=== PATIENT | female | born 1980 ===

== ENCOUNTER 2017-12-08 14:33 | Emergency (ER) | payer SELFPAY ==
--- NOTE | 2017-12-08 15:20 | RAD REPORT ---
EXAM DESCRIPTION: CT - Head Brain Wo Cont - 12/08/2017 3:07 pm CLINICAL HISTORY: Seizure. COMPARISON: None. TECHNIQUE: All CT scans are performed using dose optimization technique as appropriate and may inclu de automated exposure control or mA/KV adjustment according to patient size. FINDINGS: No intracranial hemorrhage, hydrocephalus or extra-axial fluid collection.No areas of brai n edema or evidence of midline shift. Mild mucoperiosteal thickening is seen in the right ethmoid air cells and sphenoid sinus. The remaind er the paranasal sinuses and mastoids are clear. The calvarium is intact. IMPRESSION: No acute intracranial abnormality.
[2017-12-08 15:41] LABS: Absolute Lymphocytes (CBC) 0.9 K/uL (0.7-4.9); Absolute Monocytes 0.5 K/uL (0.1-1.3); Absolute Neutrophil 7.5 K/uL (1.8-8.0); Basophils % 0.6 % (0-1.3); Eosinophils % 0.2 % (0-4.4); Hematocrit 41.6 % (36.0-45.0); Lymphocytes % 10.4 % (15.3-44.8); MCH 30.9 pg (27.0-35.0); MCV 91.5 fL (80-100); MPV 9.5 fL (7.6-11.3); RBC Red Blood Cell Count 4.55 M/uL (3.86-4.86)
[2017-12-08 15:58] LABS: Bicarbonate 23 mEq/L (21-31); Glucose Level 122 mg/dL (65-120); Lipase 18 U/L (22-51); Potassium 4.3 mEq/L (3.6-5.0); Sodium Level 136 mEq/L (135-145)
[2017-12-08 16:04] LABS: ALT/SGPT 30 IU/L (10-60); AST/SGOT 33 IU/L (10-42); Albumin 4.2 g/dL (3.2-5.5); Alkaline Phosphatase 74 IU/L (42-121); Amylase Level 53 U/L (28-100); BUN Blood Urea Nitrogen 9 mg/dL (6-20); Bilirubin Direct < 0.1 mg/dL (0-0.2); Bilirubin Total 0.2 mg/dL (0.3-1.2); Magnesium 2.2 mg/dL (1.8-2.5); Protein, Total 8.1 g/dL (6.0-8.3)
[2017-12-08] MEDS ORDERED: NA CHLORIDE 0.9% 1,000 ML ONE (16:05)
[2017-12-08] MEDS ORDERED: levETIRAcetam 1,000 MG in NA CHLORIDE 0.9% 100 ML IV ONE (17:30)
--- NOTE | 2017-12-08 18:47 | ER ---
Nurse's Notes [facility] Name: Carol Vazquez Age: 37 yrs Sex: Female : 1980 Arrival Date: 12/08/2017 Time: 14:48 Bed 19 Private MD: Diagnosis: Epilepsy and recurrent seizures Presentation: 12/08 14:54 Presenting complaint: EMS states: She has a hx of seizures, has not been taking her jl7 meds, had 2 seizures today and has been postictal since 1345 today. 14:55 Transition of care: patient was not received from another setting of care. Onset of jl7 symptoms was December 08, 2017. Initial Sepsis Screen: Does the patient meet any 2 criteria? No. Patient's initial sepsis screen is negative. Does the patient have a suspected source of infection? No. Patient's initial sepsis screen is negative. Care prior to arrival: IV initiated. 20 GA, in the left antecubital area. 14:55 Method Of Arrival: EMS: [facility] 14:55 Acuity: ROGERIO 2 jl7 Triage Assessment: 14:55 General: Appears uncomfortable, Behavior is cooperative. Pain: Denies pain. EENT: No jl7 signs and/or symptoms were reported regarding the EENT system. Neuro: Level of Consciousness is obeys commands, Oriented to person, place, time. Cardiovascular: Heart tones S1 S2 present Patient's skin is warm and dry. Respiratory: Airway is patent Respiratory effort is even, unlabored, Respiratory pattern is regular, symmetrical. GI: No signs and/or symptoms were reported involving the gastrointestinal system. : No signs and/or symptoms were reported regarding the genitourinary system. Derm: Skin is pink, warm \T\ dry. Musculoskeletal: No signs and/or symptoms reported regarding the musculoskeletal system. 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 - Social history:: Smoking status: Patient uses Patient/guardian denies using alcohol, street drugs, IV drugs, The patient lives with spouse. - Family history:: not pertinent. Screenin:25 Abuse screen: Denies threats or abuse. Denies injuries from another. Nutritional jl7 screening: No deficits noted. Tuberculosis screening: No symptoms or risk factors identified. Fall Risk No fall in past 12 months (0 pts). Secondary diagnosis (15 points) seizures, IV access (20 points). Total Potter Fall Scale indicates Low Risk Score (25-44 pts). Assessment: 14:55 General: See triage assessment. jl7 16:00 Reassessment: Patient and/or family updated on plan of care and expected duration. Pain jl7 level reassessed. Pain: Denies pain. Neuro: Level of Consciousness is awake, obeys commands, Oriented to person, place, time, situation. 17:00 Reassessment: Patient and/or family updated on plan of care and expected duration. Pain jl7 level reassessed. Neuro: Level of Consciousness is obeys commands, drowsy but responds when verbally stimulated.. 18:00 Reassessment: No changes from previously documented assessment. Patient and/or family jl7 updated on plan of care and expected duration. Pain level reassessed. 18:50 Reassessment: Pt's boyfriend at bedside, Dr. Corrigan at bedside. jl7 Vital Signs: 14:51 BP 110 / 72; Pulse 80; Resp 16 S; Temp 98.8(A); Pulse Ox 100% on R/A; jl7 16:16 BP 112 / 69; Pulse 82; Resp 14; Pulse Ox 100% on R/A; mh5 17:00 BP 114 / 74; Pulse 86; Resp 16; Pulse Ox 100% ; jl7 17:31 BP 111 / 71; Pulse 78; Resp 15; Pulse Ox 99% ; mh5 18:00 BP 109 / 65; Pulse 80; Resp 16; Pulse Ox 99% ; jl7 18:30 BP 112 / 69; Pulse 90; Resp 16; Pulse Ox 99% ; jl7 Gosia Coma Score: 14:55 Eye Response: to voice(3). Verbal Response: oriented(5). Motor Response: obeys jl7 commands(6). Total: 14. ED Course: 14:48 Patient arrived in ED. jl7 14:50 Fermin Corrigan MD is Attending Physician. ma2 14:51 Arm band placed on right wrist. jl7 15:00 Maintain EMS IV. Dressing intact. Site clean \T\ dry. Gauge \T\ site: 20 left AC. jl 7 15:07 CT Head Brain wo Cont In Process Unspecified. EDMS 15:16 Santa Wick RN is Primary Nurse. jl7 15:28 EKG done, by measurement and sensing technician. reviewed by Fermin Corrigan MD. dt2 16:25 Patient has correct armband on for positive identification. Bed in low position. Call jl7 light in reach. Side rails up X 1. Seizure precautions initiated. Pulse ox on. NIBP on. Warm blanket given. 16:30 Triage completed. jl7 18:46 Destin Jay MD is Referral Physician. ma2 19:00 No provider procedures requiring assistance completed. IV discontinued, intact, jl7 bleeding controlled, No redness/swelling at site. Pressure dressing applied. Administered Medications: 16:19 Drug: NS 0.9% 1000 ml Route: IV; Rate: 1 bolus; Site: left antecubital; jl7 18:45 Follow up: IV Status: IV converted to saline lock jl7 17:45 Drug: Keppra 1000 mg Route: IV; Rate: calculated rate; Site: left antecubital; jl7 18:00 Follow up: Response: No adverse reaction; IV Status: Completed infusion jl7 Outcome: 18:46 Discharge ordered by . ma2 19:00 Discharged to home ambulatory, with significant other. jl7 19:00 Condition: stable 19:00 Discharge instructions given to patient, significant other, Instructed on discharge instructions, follow up and referral plans. medication usage, Demonstrated understanding of instructions, follow-up care, medications, Prescriptions given X 1. 19:02 Patient left the ED. jl7 Signatures: Dispatcher [employer] EDNC Milly Thomas 5 Santa Wick, BEVERLY RN jl7 Fermin Corrigan MD MD ma2 Annita Barajas dt2 Corrections: (The following items were deleted from the chart) 16:26 16:25 Fall Risk IV access (20 points). Total Potter Fall Scale indicates No Risk (0-24 jl7 pts). jl7
--- NOTE | 2017-12-08 18:47 | EDPHYS ---
Physician Documentation [facility] Name: Carol Vazquez Age: 37 yrs Sex: Female : 1980 Arrival Date: 12/08/2017 Time: 14:48 Bed 19 Private MD: ED Physician Ferimn Corrigan HPI: 12/08 14:53 This 37 yrs old Female presents to ER via Unassigned with complaints of seizure. ma2 14:53 The patient presents with a history of multiple seizures, a total of 2. Character of ma2 seizure(s): Motor activity: generalized. Context: the seizure(s) was witnessed, by a significant other. Seizure Hx: Original onset: longstanding, 5 year(s) ago. Associated injury: The patient did not suffer any apparent associated injury. bib EMS, she did not take her keppra 1000 mg and had a seizure earlier today then her significant other gave her keppra 1 gm then she had another seizure and so he called ems, no intervention done by EMS, her seizures are unchanged, generalized tonic clonic, she is unable to give hx as she is post ectal, last seizure was 5 months ago, VS wnl, BS wnl . 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 - Social history:: Smoking status: Patient uses Patient/guardian denies using alcohol, street drugs, IV drugs, The patient lives with spouse. - Family history:: not pertinent. ROS: 14:53 Neuro: Positive for seizure activity. ma2 14:53 All other systems are negative. Exam: 14:53 Head/Face: Normocephalic, atraumatic. Eyes: Pupils equal round and reactive to light, ma2 extra-ocular motions intact. Lids and lashes normal. Conjunctiva and sclera are non-icteric and not injected. Cornea within normal limits. Periorbital areas with no swelling, redness, or edema. Chest/axilla: Normal chest wall appearance and motion. Nontender with no deformity. No lesions are appreciated. Cardiovascular: Regular rate and rhythm with a normal S1 and S2. No gallops, murmurs, or rubs. Normal PMI, no JVD. No pulse deficits. Respiratory: Lungs have equal breath sounds bilaterally, clear to auscultation and percussion. No rales, rhonchi or wheezes noted. No increased work of breathing, no retractions or nasal flaring. Abdomen/GI: Soft, non-tender, with normal bowel sounds. No distension or tympany. No guarding or rebound. No evidence of tenderness throughout. 14:53 MS/ Extremity: Pulses equal, no cyanosis. Neurovascular intact. Full, normal range of motion. Neuro: Awake and alert, GCS 15, oriented to person, place, time, and situation. Cranial nerves II-XII grossly intact. Motor strength 5/5 in all extremities. Sensory grossly intact. Cerebellar exam normal. Normal gait. 14:53 Constitutional: The patient appears post ectal arousable to verbal stimulus 14:53 Neuro: Exam negative for Vital Signs: 14:51 BP 110 / 72; Pulse 80; Resp 16 S; Temp 98.8(A); Pulse Ox 100% on R/A; jl7 16:16 BP 112 / 69; Pulse 82; Resp 14; Pulse Ox 100% on R/A; mh5 17:00 BP 114 / 74; Pulse 86; Resp 16; Pulse Ox 100% ; jl7 17:31 BP 111 / 71; Pulse 78; Resp 15; Pulse Ox 99% ; mh5 18:00 BP 109 / 65; Pulse 80; Resp 16; Pulse Ox 99% ; jl7 18:30 BP 112 / 69; Pulse 90; Resp 16; Pulse Ox 99% ; jl7 Gosia Coma Score: 14:55 Eye Response: to voice(3). Verbal Response: oriented(5). Motor Response: obeys jl7 commands(6). Total: 14. MDM: 14:50 Patient medically screened. ma2 14:53 Differential diagnosis: cerebral vascular accident, drug overdose, seizure, break ma2 through seizure . 18:44 Data reviewed: vital signs, nurses notes, EMS record, lab test result(s). Counseling: I ma2 had a detailed discussion with the patient and/or guardian regarding: the historical points, exam findings, and any diagnostic results supporting the discharge/admit diagnosis, the presence of at least one elevated blood pressure reading (>120/80) during this emergency department visit, the need for outpatient follow up. ED course: given IV keppra, no seizure in ER workup unremarkable, likely breakthrough seizure, will f/u with neuro in 2 days . 12/08 14:51 Order name: Amylase, Serum; Complete Time: 18:01 ma2 12/08 14:51 Order name: Basic Metabolic Panel; Complete Time: 18:01 ma2 12/08 14:51 Order name: CBC with Diff; Complete Time: 15:46 2 12/08 14:51 Order name: Hepatic Function; Complete Time: 18:01 ma2 12/08 14:51 Order name: CT Head Brain wo Cont; Complete Time: 15:46 ma2 12/08 14:51 Order name: Lipase; Complete Time: 18:12/08 14:51 Order name: Magnesium; Complete Time: 18:01 ma2 12/08 14:51 Order name: EKG; Complete Time: 14:52 ma2 12/08 14:51 Order name: Cardiac monitoring; Complete Time: 16:20 2 12/08 14:51 Order name: EKG - Nurse/Tech; Complete Time: 16:20 2 12/08 14:51 Order name: IV Saline Lock; Complete Time: 16:19 2 12/08 14:51 Order name: Labs collected and sent; Complete Time: 16:19 12/08 14:51 Order name: NPO; Complete Time: 16:19 ma2 12/08 14:51 Order name: O2 Per Protocol; Complete Time: 16:19 2 12/08 14:51 Order name: O2 Sat Monitoring; Complete Time: 16:19 ma2 Administered Medications: 16:19 Drug: NS 0.9% 1000 ml Route: IV; Rate: 1 bolus; Site: left antecubital; jl7 18:45 Follow up: IV Status: IV converted to saline lock jl7 17:45 Drug: Keppra 1000 mg Route: IV; Rate: calculated rate; Site: left antecubital; jl7 18:00 Follow up: Response: No adverse reaction; IV Status: Completed infusion jl7 Disposition: 12/08/17 18:46 Discharged to Home. Impression: Epilepsy and recurrent seizures. - Condition is Stable. - Discharge Instructions: Seizure, Adult, [id number]. - Prescriptions for Keppra 500 mg Oral Tablet - take 1 tablet by ORAL route every 12 hours; 20 tablet. - Medication Reconciliation Form, Thank You Letter, Antibiotic Education, Prescription Opioid Use form. - Follow up: Private Physician; When: Tomorrow; Reason: Continuance of care. Follow up: Destin Jay MD; When: Tomorrow; Reason: Continuance of care. - Problem is new. - Symptoms have improved. Signatures: Dispatcher [employer] Santa Tolentino RN RN jl7 JesusFermin gonzales MD MD ma2
--- NOTE | 2017-12-08 22:36 | EKG ---
Test Date: 2017-12-08 Test Time: 15:13:57 Visual Merchandising Director: CHARLETTE MEASUREMENT RESULTS: Intervals: Rate: 83 NV: 160 QRSD: 90 QT: 366 QTc: 430 [place]: P: 71 NV: 160 QRS: 66 T: 56 INTERPRETIVE STATEMENTS: Normal sinus rhythm Normal ECG No previous ECG available for comparison Electronically Signed On 12-08-17 22:35:58 CDT by Fernando Sy
== END 2017-12-08 19:02 | disposition home or self-care (01) ==
LOC: ER 14:33
DX: G40.802 Other epilepsy, not intractable, without status epilepticus (principal)
CPT/HCPCS: 36415; 70450; 80048; 80076; 82150; 83690; 83735; 85025; 93005; 96361; 96374; 99284; J1953; J7030

== ENCOUNTER 2018-02-18 13:58 | Emergency (ER) | payer SELFPAY ==
[2018-02-18] MEDS ORDERED: levETIRAcetam 500 MG TAB ONE (15:20)
[2018-02-18 15:52] LABS: Absolute Lymphocytes (CBC) 2.9 K/uL (0.7-4.9); Absolute Monocytes 0.8 K/uL (0.1-1.3); Absolute Neutrophil 2.3 K/uL (1.8-8.0); Basophils % 0.7 % (0-1.3); Hematocrit 39.3 % (36.0-45.0); Lymphocytes % 47.5 % (15.3-44.8); MCH 31.6 pg (27.0-35.0); MPV 9.6 fL (7.6-11.3); Monocytes % 12.6 % (3.3-12.3); RBC Red Blood Cell Count 4.23 M/uL (3.86-4.86)
[2018-02-18 15:57] LABS: Protime INR 1.1
[2018-02-18] MEDS ORDERED: RISPERIDONE 1 MG TABLET PO ONE (16:00)
[2018-02-18 16:50] LABS: ALT/SGPT 28 U/L (12-78); AST/SGOT 30 U/L (15-37); Albumin 3.8 g/dL (3.4-5.0); Alkaline Phosphatase 80 U/L (45-117); BUN Blood Urea Nitrogen 8 mg/dL (7-18); Bicarbonate 28 mmol/L (21-32); Bilirubin Direct < 0.1 mg/dL (0-0.2); Bilirubin Total 0.5 mg/dL (0.2-1.0); Glucose Level 88 mg/dL (74-106); Potassium 3.5 mmol/L (3.5-5.1); Sodium Level 142 mmol/L (136-145)
[2018-02-18 16:51] LABS: Alcohol Serum/Plasma < 3 mg/dL (0-3)
[2018-02-18 17:44] LABS: Barbiturates NEGATIVE (NEGATIVE); Benzodiazepines NEGATIVE (NEGATIVE); Cocaine NEGATIVE (NEGATIVE); METHAMPHETAM NEGATIVE (NEGATIVE); Methadone NEGATIVE (NEGATIVE); Opiates NEGATIVE (NEGATIVE); Phencyclidine NEGATIVE (NEGATIVE); THC Cannibis NEGATIVE (NEGATIVE)
[2018-02-18 18:33] LABS: Urine Blood TRACE (NEG); Urine Glucose NEGATIVE (NEG); Urine Protein NEGATIVE (NEG)
--- NOTE | 2018-02-18 18:48 | RAD REPORT ---
EXAM DESCRIPTION: CT - Stone Protocol - 02/18/2018 6:41 pm CLINICAL HISTORY: Flank pain. ABD PAIN COMPARISON: No comparisons TECHNIQUE: Axial images were obtained without oral or IV contrast. Lack of contrast limits solid org an and vascular assessment. The [id number] spans the entirety of the system partially obscuring uppermost abdomen and lung bases. Coronal reformatted images were obtained and reviewed. All CT scans are performed using dose optimization technique as appropriate and may include automated exposure control or mA/KV adjustment according to patient size. FINDINGS: The lower lung ascencio are clear. Imaged portions of the liver and spleen show no suspicious findings on non-contrast imaging. The panc reas and adrenal glands are normal. No pathologic lymphadenopathy in the abdomen or pelvis. No urinary tract stones or obstructive uropathy. No bowel obstruction, free air, free fluid or abscess. Normal appendix noted. No significant bony abnormality. IMPRESSION: No urinary tract stones or obstructive uropathy.
[2018-02-18] MEDS ORDERED: SILVER SULFADIAZINE 1% 25 GM TOP ONE (20:07)
[2018-02-18] MEDS ORDERED: DIAZEPAM 2 MG TABLET ONE (21:59)
[2018-02-19] MEDS ORDERED: IBUPROFEN 400 MG TAB ONE (15:40)
[2018-02-19] MEDS ORDERED: IBUPROFEN 200 MG TAB PO ONE (15:41)
--- NOTE | 2018-02-19 17:03 | EDPHYS ---
Physician Documentation [facility] Name: Carol Vazquez Age: 37 yrs Sex: Female : 1980 Arrival Date: 02/18/2018 Time: 14:02 Bed 18 Private MD: None, None ED Physician Saad Castle HPI: 02/18 15:24 This 37 yrs old Unknown Female presents to ER via Ambulatory with complaints of Psych snw Problem, Pelvic Pain, Abdominal Pain. 15:24 The patient presents to the emergency department with suicide ideation, and the patient snw has a plan, asking for gun. Onset: The symptoms/episode began/occurred acutely. Past psychiatric history: Prior diagnosis: schizophrenia, Psychiatric medications include: risperdone, keppra. Associated signs and symptoms: Pertinent positives; abdominal pain. Severity of symptoms: At their worst the symptoms were moderate severe. The patient has experienced similar episodes in the past. as noted. s.o. unaware if pt is currently taking medications as directed. 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 - Social history:: Smoking status: Patient uses tobacco products, smokes one-half pack cigarettes per day. - Ebola Screening: : Patient denies travel to an Ebola-affected area in the 21 days before illness onset. ROS: 15:13 Eyes: Negative for injury, pain, redness, and discharge, ENT: Negative for injury, snw pain, and discharge, Neck: Negative for injury, pain, and swelling, Cardiovascular: Negative for chest pain, palpitations, and edema, Respiratory: Negative for shortness of breath, cough, wheezing, and pleuritic chest pain. 15:13 Back: Negative for injury and pain, : Negative for injury, bleeding, discharge, and swelling, MS/Extremity: Negative for injury and deformity, Skin: Negative for injury, rash, and discoloration, Neuro: Negative for headache, weakness, numbness, tingling, and seizure. 15:13 Constitutional: Positive for s.o. reports pt having hallucinations, screaming out nonsense, followed by staring off in space. Hx of seizures, last seizures 3 days ago x 3. Seen at [facility] at that time. 15:13 Abdomen/GI: Positive for abdominal pain. 15:13 Psych: Positive for suicidal ideation, per s.o. pt is having some sort of hallucinations, pt denies. Exam: 15:02 Head/Face: Normocephalic, atraumatic. Eyes: Pupils equal round and reactive to light, snw extra-ocular motions intact. Lids and lashes normal. Conjunctiva and sclera are non-icteric and not injected. Cornea within normal limits. Periorbital areas with no swelling, redness, or edema. ENT: Nares patent. No nasal discharge, no septal abnormalities noted. Tympanic membranes are normal and external auditory canals are clear. Oropharynx with no redness, swelling, or masses, exudates, or evidence of obstruction, uvula midline. Mucous membranes moist. Neck: Trachea midline, no thyromegaly or masses palpated, and no cervical lymphadenopathy. Supple, full range of motion without nuchal rigidity, or vertebral point tenderness. No Meningismus. Chest/axilla: Normal chest wall appearance and motion. Nontender with no deformity. No lesions are appreciated. Cardiovascular: Regular rate and rhythm with a normal S1 and S2. No gallops, murmurs, or rubs. Normal PMI, no JVD. No pulse deficits. Respiratory: Lungs have equal breath sounds bilaterally, clear to auscultation and percussion. No rales, rhonchi or wheezes noted. No increased work of breathing, no retractions or nasal flaring. Back: No spinal tenderness. No costovertebral tenderness. Full range of motion. Skin: Warm, dry with normal turgor. Normal color with no rashes, no lesions, and no evidence of cellulitis. MS/ Extremity: Pulses equal, no cyanosis. Neurovascular intact. Full, normal range of motion. Neuro: Awake and alert, GCS 15, oriented to person, place, time, and situation. Cranial nerves II-XII grossly intact. Motor strength 5/5 in all extremities. Sensory grossly intact. Cerebellar exam normal. Normal gait. 15:02 Constitutional: The patient appears awake, anxious, not communicating much, most of history from significant other 15:02 Abdomen/GI: Inspection: abdomen appears normal, Bowel sounds: normal, Palpation: moderate abdominal tenderness, in the suprapubic area, rebound tenderness, is not appreciated. 15:03 Special observations: pt does not acknowledge history of hallucinations that s.o. snw reports, only reports abd pain. Vital Signs: 14:44 BP 117 / 84; Pulse 86; Resp 18; Temp 98.1(TE); Pulse Ox 100% on R/A; Weight 63.5 kg (R);aj1 19:18 BP 112 / 78; Pulse 82; Resp 17; Temp 98; Pulse Ox 99% ; ks6 02/19 00:01 BP 118 / 79; Pulse 66; Resp 17; Temp 97; Pulse Ox 98% ; ks6 07:42 BP 118 / 71; Pulse 69; Resp 16; Temp 96.2(O); Pulse Ox 100% on R/A; Pain 0/10; em 11:30 BP 105 / 66; Pulse 71; Resp 16; Temp 98.1; Pulse Ox 100% ; mp1 12:00 Temp 98.1(O); em 15:34 BP 111 / 64; Pulse 80; Resp 16; Temp 98.3; Pulse Ox 99% ; mp1 MDM: 07 14:58 Patient medically screened. snw 16:22 ED course: Pt's [place] [phone]. snw 17:54 Data reviewed: vital signs, nurses notes. Data interpreted: Pulse oximetry: on room air snw is 100 %. Interpretation: normal. Counseling: I had a detailed discussion with the patient and/or guardian regarding: the historical points, exam findings, and any diagnostic results supporting the discharge/admit diagnosis, the presence of at least one elevated blood pressure reading (>120/80) during this emergency department visit, lab results. Other consultation: [facility] Emergency screener for eval. 21:49 ED course: pt becoming agitated, does not wish to stay. Haleigh called and pt calm, snw awaiting psych placement.. 02/19 02:01 ED course: sleeping in no acute distress. Haleigh called to inquire about patient and snw current status relayed.. 02:14 Transition of care: After a detail discussion of the patient's case, care is snw transferred to Jason Knapp MD. 08:27 ED course: The patient continues to be stable and without any worsening. She continues kdr to have auditory hallucinations. Her boyfriend is here but not comfortable with taking her home as yet. He will return later today to check on her. 02/18 14:57 Order name: Acetaminophen snw 02/18 14:57 Order name: Basic Metabolic Panel sn 02/18 14:57 Order name: CBC with Diff; Complete Time: 16:43 snw 02/18 14:57 Order name: ETOH Level; Complete Time: 17:28 snw 02/18 14:57 Order name: Hepatic Function; Complete Time: 17:28 snw 02/18 14:57 Order name: PT-INR; Complete Time: 16:43 snw 02/18 14:57 Order name: Ptt, Activated; Complete Time: 16:43 snw 02/18 14:57 Order name: Salicylate; Complete Time: 16:43 w 02/18 14:57 Order name: Urine Drug Screen; Complete Time: 17:52 snw 02/18 14:57 Order name: Acetaminophen Level; Complete Time: 17:28 EDMS 02/18 14:57 Order name: Basic Metabolic Panel; Complete Time: 17:28 EDMS 02/18 17:27 Order name: Urine Dipstick--Ancillary (enter results); Complete Time: 18:35 ag 02/18 17:27 Order name: Urine --Ancillary (enter results); Complete Time: 18:35 ag 02/18 18:21 Order name: CT Stone Protocol; Complete Time: 18:49 snw 02/18 14:57 Order name: Urine Test (obtain specimen); Complete Time: 19:35 snw 02/18 14:57 Order name: EKG; Complete Time: 14:57 w 02/18 14:57 Order name: EKG - Nurse/Tech; Complete Time: 19:35 w 02/18 14:57 Order name: IV Saline Lock; Complete Time: 15:43 snw 02/18 14:57 Order name: Labs collected and sent; Complete Time: 15:43 w 02/18 14:57 Order name: Urine Dipstick-Ancillary (obtain specimen); Complete Time: 19:59 snw 07/12 16:56 Order name: Diet Regular; Complete Time: 16:56 sg 02/18 17:29 Order name: Diet Regular; Complete Time: 17:29 snw 02/18 21:49 Order name: Misc. Order: snack; Complete Time: 21:49 snw 02/19 07:28 Order name: Diet Regular; Complete Time: 07:28 dh3 02/19 10:55 Order name: Diet Regular; Complete Time: 10:55 em 02/19 16:00 Order name: Diet Regular; Complete Time: 16:00 em Administered Medications: 02/18 15:30 Drug: Keppra 500 mg Route: PO; sg 02/19 07:30 Follow up: Response: No adverse reaction em 02/18 15:30 Drug: RisperDAL 2 mg Route: PO; sg 02/19 13:46 Follow up: Response: No adverse reaction em 02/18 22:08 Drug: Valium 2 mg Route: PO; bs1 02/19 07:30 Follow up: Response: No adverse reaction em Disposition: 17:01 I agree with the assessment and plan of care. kdr Disposition: 02/19/18 17:02 Discharged to Home. Impression: Epilepsy and recurrent seizures, Hallucinations, unspecified, Schizophrenia, unspecified. - Condition is Stable. - Discharge Instructions: Schizophrenia, Helping Someone Who is Suicidal, Seizure, Adult, [id number]. - Medication Reconciliation Form, Thank You Letter form. - Follow up: Private Physician; When: 2 - 3 days; Reason: If symptoms return, Further diagnostic work-up, Recheck today's complaints, Continuance of care, Re-evaluation by your physician. - Problem is an acute exacerbation. - Symptoms have improved. Signatures: Dispatcher [employer] Naima Mo RN RN aj1 Anuj Hunter RN RN Saad Rendon MD MD kdr Therrien, Shelly, MASH PREPARATORY OPERATOR-C MASH PREPARATORY OPERATOR-Fabio Jones, SPINNING FRAME TENDER SPINNING FRAME TENDER em Hedy Cooper, RN RN bs1 Corrections: (The following items were deleted from the chart) 17:51 17:02 02/19/2018 17:02 Discharged to Home. Impression: Epilepsy and recurrent seizures; em Hallucinations, unspecified; Schizophrenia, unspecified. Condition is Stable. Forms are Medication Reconciliation Form, Thank You Letter, Antibiotic Education, Prescription Opioid Use. Follow up: Private Physician; When: 2 - 3 days; Reason: If symptoms return, Further diagnostic work-up, Recheck today's complaints, Continuance of care, Re-evaluation by your physician. Problem is an acute exacerbation. Symptoms have improved. kdr
--- NOTE | 2018-02-19 17:03 | ER ---
Nurse's Notes [facility] Name: Carol Vazquez Age: 37 yrs Sex: Female : 1980 Arrival Date: 02/18/2018 Time: 14:02 Bed 18 Private MD: None, None Diagnosis: Epilepsy and recurrent seizures;Hallucinations, unspecified;Schizophrenia, unspecified Presentation: 02/18 14:38 Presenting complaint: Significant other states: She has been saying that her stomach aj1 hurts and she's been yelling and having hallucinations. Patient states that she wants to hurt herself. Denies any plan. Significant other states that she has been asking him if he has a gun. Transition of care: patient was not received from another setting of care. Onset of symptoms was February 15, 2018. Risk Assessment: Do you want to hurt yourself or someone else? Patient reports desire/thoughts of hurting themselves or someone else. Provider notified. Initial Sepsis Screen: Does the patient meet any 2 criteria? No. Patient's initial sepsis screen is negative. Does the patient have a suspected source of infection? No. Patient's initial sepsis screen is negative. Care prior to arrival: None. 14:38 Method Of Arrival: Ambulatory aj1 14:38 Acuity: ROGERIO 2 aj1 Triage Assessment: 14:44 General: Appears in no apparent distress. comfortable, Behavior is calm, cooperative, aj1 appropriate for age. Pain: Denies pain. Neuro: Level of Consciousness is awake, alert, obeys commands. Respiratory: Airway is patent Respiratory effort is even, unlabored, Respiratory pattern is regular, symmetrical. 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 - Social history:: Smoking status: Patient uses tobacco products, smokes one-half pack cigarettes per day. - Ebola Screening: : Patient denies travel to an Ebola-affected area in the 21 days before illness onset. Screenin:18 Abuse screen: Denies threats or abuse. Denies injuries from another. Nutritional bs1 screening: No deficits noted. Tuberculosis screening: No symptoms or risk factors identified. Fall Risk None identified. Assessment: 15:20 General: Appears in no apparent distress. comfortable, well groomed, well developed, sg well nourished, Behavior is calm, cooperative, appropriate for age. Pain: Complains of pain in abdomen and pelvis Quality of pain is described as aching, throbbing. Neuro: Level of Consciousness is awake, alert, obeys commands, Oriented to person, place, Speech is normal, Facial symmetry appears normal, pt reports audible hallucinations, "hearing voices.". Cardiovascular: Heart tones S1 S2 present Capillary refill is brisk in bilateral fingers Patient's skin is warm and dry. Respiratory: Airway is patent Respiratory effort is even, unlabored, Respiratory pattern is regular, symmetrical, Breath sounds are clear. GI: No signs and/or symptoms were reported involving the gastrointestinal system. : No deficits noted. EENT: No deficits noted. Derm: Skin is pink, warm \\T\\ dry. Musculoskeletal: No signs and/or symptoms reported regarding the musculoskeletal system. 16:30 Reassessment: pt dcd IV, intact bleeding controlled, a pressure dressing was applied, sg bleeding controlled. 17:04 Reassessment: Patient appears in no apparent distress at this time. Patient and/or sg family updated on plan of care and expected duration. Pain level reassessed. 17:53 Reassessment: Graciela from the [facility] Hotline, contacted regarding iw information prior to a bedside screening. A bedside screener is being contacted at this time per Graciela from [facility]. 19:05 Reassessment: Report received from BEVERLY Leslie. bs1 19:05 General: Appears in no apparent distress. comfortable, well groomed, Behavior is calm, bs1 cooperative, appropriate for age. Pain: Denies pain. Neuro: Level of Consciousness is awake, alert, obeys commands, Oriented to person, place, time, Speech is normal, Facial symmetry appears normal. Cardiovascular: Heart tones S1 S2 present Capillary refill < 3 seconds Patient's skin is warm and dry. Respiratory: Airway is patent Respiratory effort is even, unlabored, Respiratory pattern is regular, symmetrical, Breath sounds are clear bilaterally. GI: Abdomen is round non-distended, Bowel sounds present X 4 quads. : No deficits noted. EENT: No deficits noted. Derm: Skin is intact, Skin is pink, warm \\T\\ dry. normal. Musculoskeletal: No signs and/or symptoms reported regarding the musculoskeletal system. 21:15 Reassessment: patient noted to be speaking in tongues on the floor yelling out, patient bs1 then walked out of room very slowly. Calmly ambulated patient back to room. 22:45 Reassessment: No changes from previously documented assessment. Patient and/or family bs1 updated on plan of care and expected duration. Pain level reassessed. Patient is alert, oriented x 3, equal unlabored respirations, skin warm/dry/pink. 23:30 Reassessment: [facility] at bedside. bs1 02/19 01:45 Reassessment: Patient appears in no apparent distress at this time. Patient and/or bs1 family updated on plan of care and expected duration. Pain level reassessed. Patient is alert, oriented x 3, equal unlabored respirations, skin warm/dry/pink. Pending placement. No further needs at this time. 03:00 Reassessment: Report handed off to BEVERLY Boyd. Patient asleep. Even respirations. No bs1 further needs. 07:30 Reassessment: Patient appears in no apparent distress at this time. Patient and/or em family updated on plan of care and expected duration. Pain level reassessed. Patient is alert, oriented x 3, equal unlabored respirations, skin warm/dry/pink. resting comfortably in bed, currently denies SI or HI, auditory hallucinations present, are telling her "nothing," awaiting breakfast tray. 08:30 Reassessment: Patient appears in no apparent distress at this time. received breakfast em tray. 10:30 Reassessment: Patient appears in no apparent distress at this time. Patient and/or em family updated on plan of care and expected duration. Pain level reassessed. Patient is alert, oriented x 3, equal unlabored respirations, skin warm/dry/pink. 12:30 Reassessment: resting comfortably in bed with eyes closed, respiration even and em unlabored, skin normal dry. 13:47 Reassessment: Patient appears in no apparent distress at this time. Patient and/or em family updated on plan of care and expected duration. Pain level reassessed. Patient is alert, oriented x 3, equal unlabored respirations, skin warm/dry/pink. 15:41 Reassessment: Patient appears in no apparent distress at this time. c/o "ovary pain" em rates 03/19, Dr. Castle notified, received verbal order for 600 mg Ibuprofen, currently denies SI, HI, or auditory hallucinations, pt request to go home, Dr. Castle notified. 17:14 Reassessment: Patient appears in no apparent distress at this time. Patient and/or em family updated on plan of care and expected duration. Pain level reassessed. fiance at bedside, requested clothes from security, security brought clothes to pt. Psych: 02/18 19:05 Safety Checks: Personal items have been removed. Door is open. No visitors are present bs1 at this time. 19:05 Subjective: Patient's mood is Delusions are denied, Hallucinations are auditory, Having bs1 thoughts of suicide. Objective: Patient is cooperative, using poor eye contact, restless, Speech is slow, soft, Affect is flat. Interventions: Removed personal items and placed in bag. Patient placed in hospital gown. Searched person for dangerous items. Urine collected and sent for urine drug test. Patient reassessed during use of restraints. Patient is physically safe. Suicide Risk Assessment: Sad Person Scale: Sex of patient: Female: Score 0 points. Age of patient: Score 0 point if patient falls outside of specified age parameters. Depression: Score 1 point if signs of depression are present. Previous Attempt: Score 0 point if patient has not previously attempted suicide. Substance Abuse: Score 0 point if patient does not abuse alcohol or drugs. Rational Thinking: Score 1 point if patient is lacking rational thinking. Social Support: Score 1 point if social support is lacking and/or unavailable. Organized Plan: Score 1 point if patient had a plan in place. Relationship: Score 1 point if patient is , , , or for a single male Chronic Sickness: Score 0 point if patient does not have a chronic illness, debilitating, or severe disorder. TOTAL POINTS: If total points are 5-6, proposed clinical action is to strongly consider hospitalization, depending upon confidence in the follow-up arrangement. Implement suicide precautions. 21:22 Pt denies substance abuse. bs1 02/19 17:46 Commitment: Patient will be a voluntary commitment. em Vital Signs: 02/18 14:44 BP 117 / 84; Pulse 86; Resp 18; Temp 98.1(TE); Pulse Ox 100% on R/A; Weight 63.5 kg (R);aj1 19:18 BP 112 / 78; Pulse 82; Resp 17; Temp 98; Pulse Ox 99% ; ks6 07/ 00:01 BP 118 / 79; Pulse 66; Resp 17; Temp 97; Pulse Ox 98% ; ks6 07:42 BP 118 / 71; Pulse 69; Resp 16; Temp 96.2(O); Pulse Ox 100% on R/A; Pain 0/10; em 11:30 BP 105 / 66; Pulse 71; Resp 16; Temp 98.1; Pulse Ox 100% ; mp1 12:00 Temp 98.1(O); em 15:34 BP 111 / 64; Pulse 80; Resp 16; Temp 98.3; Pulse Ox 99% ; mp1 ED Course: 02/18 14:02 Patient arrived in ED. mr 14:02 None, None is Private Physician. mr 14:44 Triage completed. aj1 14:44 Arm band placed on Patient placed in an exam room. aj1 14:56 [facility] snw 14:56 Saad Castle MD is Attending Physician. snw 15:22 Anuj Hunter, BEVERLY is Primary Nurse. sg 15:27 EKG done, by veterinary technology instructor. reviewed by Saad Castle MD. sm3 15:38 Initial lab(s) drawn, by ca, sent to lab. Inserted saline lock: 22 gauge in left mh5 antecubital area, using aseptic technique. Blood collected. 15:40 Safety checks: Items removed: yes. Door open/sign placed on door: yes. Family/friend mh5 present: no. Sitter present: Yes. Patient has correct armband on for positive identification. Placed in gown. Bed in low position. Side rails up X2. Warm blanket given. 15:43 Basic Metabolic Panel Sent. 5 15:43 Basic Metabolic Panel Sent. 5 15:43 Acetaminophen Sent. 5 15:43 CBC with Diff Sent. 5 15:43 ETOH Level Sent. 5 15:43 Hepatic Function Sent. 5 15:44 PT-INR Sent. 5 15:44 Ptt, Activated Sent. 5 15:44 Salicylate Sent. mh5 16:00 Safety checks: Items removed: yes. Door open/sign placed on door: yes. Family/friend ms present: no. Sitter present: Yes. 16:15 Safety checks: Items removed: yes. Door open/sign placed on door: yes. Family/friend ms present: no. Sitter present: Yes. 16:30 Safety checks: Items removed: yes. Door open/sign placed on door: yes. Family/friend ms present: no. Sitter present: Yes. 16:45 Safety checks: Items removed: yes. Door open/sign placed on door: yes. Family/friend ms present: no. Sitter present: Yes. 17:00 Safety checks: Items removed: yes. Door open/sign placed on door: yes. Family/friend ms present: no. Sitter present:. 17:15 Safety checks: Items removed: yes. Door open/sign placed on door: yes. Family/friend ms present: no. Sitter present: Yes. 17:30 Safety checks: Items removed: yes. Door open/sign placed on door: yes. Family/friend ms present: no. Sitter present: Yes. 17:45 Safety checks: Items removed: yes. Door open/sign placed on door: yes. Family/friend ms present: no. Sitter present: Yes. 18:00 Safety checks: Items removed: yes. Door open/sign placed on door: yes. Family/friend ms present: no. Sitter present: Yes. 18:15 Safety checks: Items removed: yes. Door open/sign placed on door: yes. Family/friend ms present: no. Sitter present: Yes. 18:18 Pillow given. Diet: Patient given a regular meal tray. ms 18:30 Safety checks: Items removed: yes. Door open/sign placed on door: yes. Family/friend ms present: no. Sitter present: Yes. 18:40 CT completed. Patient tolerated procedure well. Patient moved back from CT. nj 18:41 CT Stone Protocol In Process Unspecified. EDMS 18:45 Safety checks: Items removed: yes. Door open/sign placed on door: yes. Family/friend ms present: no. Sitter present: Yes. 19:00 Safety Checks: Personal items have been removed. The door is open or patient has been lc4 placed in a hallway bed/chair. There are no family/friend visitors at this time Sitter present at this time. 19:06 Primary Nurse role handed off by Anuj Hunter RN rg2 19:15 Safety Checks: Personal items have been removed. The door is open or patient has been lc4 placed in a hallway bed/chair. There are no family/friend visitors at this time Sitter present at this time. 19:30 Hedy Cooper RN is Primary Nurse. bs1 19:30 Safety Checks: Personal items have been removed. The door is open or patient has been lc4 placed in a hallway bed/chair. There are no family/friend visitors at this time Sitter present at this time. 19:45 Safety Checks: Personal items have been removed. The door is open or patient has been lc4 placed in a hallway bed/chair. There are no family/friend visitors at this time Sitter present at this time. 20:00 Safety Checks: Personal items have been removed. The door is open or patient has been lc4 placed in a hallway bed/chair. There are no family/friend visitors at this time Sitter present at this time. 20:15 Safety Checks: Personal items have been removed. The door is open or patient has been lc4 placed in a hallway bed/chair. There are no family/friend visitors at this time Sitter present at this time. 20:30 Safety Checks: Personal items have been removed. The door is open or patient has been lc4 placed in a hallway bed/chair. There are no family/friend visitors at this time Sitter present at this time. 20:45 Safety Checks: Personal items have been removed. The door is open or patient has been lc4 placed in a hallway bed/chair. There are no family/friend visitors at this time Sitter present at this time. 21:00 Safety Checks: Personal items have been removed. The door is open or patient has been lc4 placed in a hallway bed/chair. There are no family/friend visitors at this time Sitter present at this time. 21:15 Safety Checks: Personal items have been removed. The door is open or patient has been lc4 placed in a hallway bed/chair. There are no family/friend visitors at this time Sitter present at this time. 21:30 Safety Checks: Personal items have been removed. The door is open or patient has been lc4 placed in a hallway bed/chair. There are no family/friend visitors at this time Sitter present at this time. 21:45 Safety Checks: Personal items have been removed. The door is open or patient has been lc4 placed in a hallway bed/chair. There are no family/friend visitors at this time Sitter present at this time. 22:00 Safety Checks: Personal items have been removed. The door is open or patient has been lc4 placed in a hallway bed/chair. There are no family/friend visitors at this time Sitter present at this time. 22:15 Safety Checks: Personal items have been removed. The door is open or patient has been lc4 placed in a hallway bed/chair. There are no family/friend visitors at this time Sitter present at this time. 22:30 Safety Checks: Personal items have been removed. The door is open or patient has been lc4 placed in a hallway bed/chair. There are no family/friend visitors at this time Sitter present at this time. 22:45 Safety Checks: Personal items have been removed. The door is open or patient has been lc4 placed in a hallway bed/chair. There are no family/friend visitors at this time Sitter present at this time. 23:00 Safety Checks: Personal items have been removed. The door is open or patient has been lc4 placed in a hallway bed/chair. There are no family/friend visitors at this time Sitter present at this time. 23:15 Safety Checks: Personal items have been removed. The door is open or patient has been lc4 placed in a hallway bed/chair. There are no family/friend visitors at this time Sitter present at this time. 23:30 Safety Checks: Personal items have been removed. The door is open or patient has been lc4 placed in a hallway bed/chair. There are no family/friend visitors at this time Sitter present at this time. 23:45 Safety Checks: Personal items have been removed. The door is open or patient has been lc4 placed in a hallway bed/chair. There are no family/friend visitors at this time Sitter present at this time. 02/19 00:00 Safety Checks: Personal items have been removed. The door is open or patient has been lc4 placed in a hallway bed/chair. There are no family/friend visitors at this time Sitter present at this time. 00:15 Safety Checks: Personal items have been removed. The door is open or patient has been jl3 placed in a hallway bed/chair. There are no family/friend visitors at this time Sitter present at this time. 00:30 Safety Checks: Personal items have been removed. The door is open or patient has been lc4 placed in a hallway bed/chair. There are no family/friend visitors at this time Sitter present at this time. 00:45 Safety Checks: Personal items have been removed. The door is open or patient has been lc4 placed in a hallway bed/chair. There are no family/friend visitors at this time Sitter present at this time. 01:00 Safety Checks: Personal items have been removed. The door is open or patient has been lc4 placed in a hallway bed/chair. There are no family/friend visitors at this time Sitter present at this time. 01:15 Safety Checks: Personal items have been removed. The door is open or patient has been lc4 placed in a hallway bed/chair. There are no family/friend visitors at this time Sitter present at this time. 01:30 Safety Checks: Personal items have been removed. The door is open or patient has been lc4 placed in a hallway bed/chair. There are no family/friend visitors at this time Sitter present at this time. 01:45 Safety Checks: Personal items have been removed. The door is open or patient has been lc4 placed in a hallway bed/chair. There are no family/friend visitors at this time Sitter present at this time. 02:00 Safety Checks: Personal items have been removed. The door is open or patient has been lc4 placed in a hallway bed/chair. There are no family/friend visitors at this time Sitter present at this time. 02:15 Safety Checks: Personal items have been removed. The door is open or patient has been lc4 placed in a hallway bed/chair. There are no family/friend visitors at this time Sitter present at this time. 02:30 Safety Checks: Personal items have been removed. The door is open or patient has been lc4 placed in a hallway bed/chair. There are no family/friend visitors at this time Sitter present at this time. 02:45 Safety Checks: Personal items have been removed. The door is open or patient has been lc4 placed in a hallway bed/chair. There are no family/friend visitors at this time Sitter present at this time. 03:00 Safety Checks: Personal items have been removed. The door is open or patient has been lc4 placed in a hallway bed/chair. There are no family/friend visitors at this time Sitter present at this time. 03:15 Safety Checks: Personal items have been removed. The door is open or patient has been lc4 placed in a hallway bed/chair. There are no family/friend visitors at this time Sitter present at this time. 03:30 Safety Checks: Personal items have been removed. The door is open or patient has been lc4 placed in a hallway bed/chair. There are no family/friend visitors at this time Sitter present at this time. 03:45 Safety Checks: Personal items have been removed. The door is open or patient has been lc4 placed in a hallway bed/chair. There are no family/friend visitors at this time Sitter present at this time. 04:00 Safety Checks: Personal items have been removed. The door is open or patient has been lc4 placed in a hallway bed/chair. There are no family/friend visitors at this time Sitter present at this time. 04:15 Safety Checks: Personal items have been removed. The door is open or patient has been lc4 placed in a hallway bed/chair. There are no family/friend visitors at this time Sitter present at this time. 04:30 Safety Checks: Personal items have been removed. The door is open or patient has been lc4 placed in a hallway bed/chair. There are no family/friend visitors at this time Sitter present at this time. 04:45 Safety Checks: Personal items have been removed. The door is open or patient has been lc4 placed in a hallway bed/chair. There are no family/friend visitors at this time Sitter present at this time. 05:00 Safety Checks: Personal items have been removed. The door is open or patient has been lc4 placed in a hallway bed/chair. There are no family/friend visitors at this time Sitter present at this time. 05:15 Safety Checks: Personal items have been removed. The door is open or patient has been lc4 placed in a hallway bed/chair. There are no family/friend visitors at this time Sitter present at this time. 05:30 Safety Checks: Personal items have been removed. The door is open or patient has been lc4 placed in a hallway bed/chair. There are no family/friend visitors at this time Sitter present at this time. 05:45 Safety Checks: Personal items have been removed. The door is open or patient has been lc4 placed in a hallway bed/chair. There are no family/friend visitors at this time Sitter present at this time. 06:00 Safety Checks: Personal items have been removed. The door is open or patient has been lc4 placed in a hallway bed/chair. There are no family/friend visitors at this time Sitter present at this time. 06:15 Safety Checks: Personal items have been removed. The door is open or patient has been lc4 placed in a hallway bed/chair. There are no family/friend visitors at this time Sitter present at this time. 06:30 Safety Checks: Personal items have been removed. The door is open or patient has been lc4 placed in a hallway bed/chair. There are no family/friend visitors at this time Sitter present at this time. 06:45 Safety Checks: Personal items have been removed. The door is open or patient has been lc4 placed in a hallway bed/chair. There are no family/friend visitors at this time Sitter present at this time. 07:00 Safety checks: Items removed: yes. Door open/sign placed on door: yes. Family/friend dh3 present: no. Sitter present: Yes. 07:15 Report received from BEVERLY Boyd. em 07:15 Safety checks: Items removed: yes. Door open/sign placed on door: yes. Family/friend mp1 present: no. Sitter present: Yes. 07:23 faxed patient records to the following facilities in the attempt to transfer; [facility] ; [facility] ; [facility] [address]; [facility], [facility]; [facility]; [facility], [facility], [facility], [facility], [facility]. 07:30 Safety checks: Items removed: yes. Door open/sign placed on door: yes. Family/friend mp1 present: no. Sitter present: Yes. 07:45 Safety checks: Items removed: yes. Door open/sign placed on door: yes. Family/friend mp1 present: yes. Sitter present: Yes. 08:00 Safety checks: Items removed: yes. Door open/sign placed on door: yes. Family/friend mp1 present: yes. Sitter present: Yes. 08:15 Safety checks: Items removed: yes. Door open/sign placed on door: yes. Family/friend mp1 present: yes. no. Sitter present: Yes. 08:30 Safety checks: Items removed: yes. Door open/sign placed on door: yes. Family/friend mp1 present: no. Sitter present: Yes. 08:31 the Fikylie Choi left his cell phone number to please call if we had any eb issues or concerns. Phone number is : [phone]. 08:45 Safety checks: Items removed: yes. Door open/sign placed on door: yes. Family/friend mp1 present: no. Sitter present: Yes. 09:00 Safety checks: Items removed: yes. Door open/sign placed on door: yes. Family/friend mp1 present: no. Sitter present: Yes. 09:15 Safety checks: Items removed: yes. Door open/sign placed on door: yes. Family/friend mp1 present: no. Sitter present: Yes. 09:30 Safety checks: Items removed: yes. Door open/sign placed on door: yes. Family/friend mp1 present: no. Sitter present: Yes. 09:45 Safety checks: Items removed: yes. Door open/sign placed on door: yes. Family/friend mp1 present: no. Sitter present: Yes. 10:00 Safety checks: Items removed: yes. Door open/sign placed on door: yes. Family/friend mp1 present: no. Sitter present: Yes. 10:15 Safety checks: Items removed: yes. Door open/sign placed on door: yes. Family/friend mp1 present: no. Sitter present: Yes. 10:30 Safety checks: Items removed: yes. Door open/sign placed on door: yes. Family/friend mp1 present: no. Sitter present: Yes. 10:45 Safety checks: Items removed: yes. Door open/sign placed on door: yes. Family/friend mp1 present: no. Sitter present: Yes. 11:00 Safety checks: Items removed: yes. Door open/sign placed on door: yes. Family/friend mp1 present: no. Sitter present: Yes. 11:[address] [facility] called to say they are at capacity and are unable to take eb this patient in transfer. 11:15 Safety checks: Items removed: yes. Door open/sign placed on door: yes. Family/friend mp1 present: no. Sitter present: Yes. 11:30 Safety checks: Items removed: yes. Door open/sign placed on door: yes. Family/friend mp1 present: no. Sitter present: Yes. 11:45 Safety checks: Items removed: yes. Door open/sign placed on door: yes. Family/friend mp1 present: no. Sitter present: Yes. 12:00 Safety checks: Items removed: yes. Door open/sign placed on door: yes. Family/friend mp1 present: no. Sitter present: Yes. 12:15 Safety checks: Items removed: yes. Door open/sign placed on door: yes. Family/friend mp1 present: no. Sitter present: Yes. 12:30 Safety checks: Items removed: Door open/sign placed on door: yes. Family/friend mp1 present: no. Sitter present: Yes. 12:45 Safety checks: Items removed: yes. Door open/sign placed on door: yes. Family/friend mp1 present: no. Sitter present: Yes. 13:00 Safety checks: Items removed: yes. Door open/sign placed on door: yes. Family/friend dh3 present: no. Sitter present: Yes. 13:15 Safety checks: Items removed: yes. Door open/sign placed on door: yes. Family/friend dh3 present: no. Sitter present: Yes. 13:30 Safety checks: Items removed: yes. Door open/sign placed on door: yes. Family/friend dh3 present: no. Sitter present: Yes. 13:45 Safety checks: Items removed: yes. Door open/sign placed on door: yes. Family/friend dh3 present: no. Sitter present: Yes. 13:49 No provider procedures requiring assistance completed. em 14:00 Safety checks: Items removed: yes. Door open/sign placed on door: yes. Family/friend mp1 present: no. Sitter present: Yes. 14:15 Safety checks: Items removed: yes. Door open/sign placed on door: yes. Family/friend mp1 present: no. Sitter present: Yes. 14:30 Safety checks: Items removed: yes. Door open/sign placed on door: yes. Family/friend mp1 present: no. Sitter present: Yes. 14:45 Safety checks: Items removed: yes. Door open/sign placed on door: yes. Family/friend mp1 present: no. Sitter present: Yes. 15:00 Safety checks: Items removed: yes. Door open/sign placed on door: yes. Family/friend mp1 present: no. Sitter present: Yes. 15:15 Safety checks: Items removed: yes. Door open/sign placed on door: yes. Family/friend mp1 present: no. Sitter present: Yes. 15:29 called [facility] to attempt to initiate a transfer and spoke with Cole at intake and eb he says they will not have any beds available until Thursday02/22/2018. 15:30 Safety checks: Items removed: yes. Door open/sign placed on door: yes. Family/friend mp1 present: no. Sitter present: Yes. 15:45 Safety checks: Items removed: yes. Door open/sign placed on door: yes. Family/friend mp1 present: no. Sitter present: Yes. 16:00 Safety checks: Items removed: yes. Door open/sign placed on door: yes. Family/friend mp1 present: no. Sitter present: Yes. 16:15 Safety checks: Items removed: yes. Door open/sign placed on door: yes. Family/friend mp1 present: no. Sitter present: Yes. 16:30 Safety checks: Items removed: yes. Door open/sign placed on door: yes. Family/friend mp1 present: yes. Sitter present: Yes. 16:45 Safety checks: Items removed: yes. Door open/sign placed on door: yes. Family/friend mp1 present: yes. Sitter present: Yes. 17:00 Safety checks: Items removed: yes. Door open/sign placed on door: yes. Family/friend mp1 present: yes. Sitter present: Yes. 17:15 Safety checks: Items removed: yes. Door open/sign placed on door: yes. Family/friend mp1 present: yes. Sitter present: Yes. 17:46 IV discontinued, intact, bleeding controlled, No redness/swelling at site. Pressure em dressing applied. Administered Medications: 02/18 15:30 Drug: Keppra 500 mg Route: PO; 02/19 07:30 Follow up: Response: No adverse reaction em 02/18 15:30 Drug: RisperDAL 2 mg Route: PO; 02/19 13:46 Follow up: Response: No adverse reaction em 02/18 22:08 Drug: Valium 2 mg Route: PO; [facility] 02/19 07:30 Follow up: Response: No adverse reaction em Outcome: 17:02 Discharge ordered by MD. kdr 17:47 Discharged to home ambulatory. em 17:47 Condition: good 17:47 Discharge instructions given to patient, Instructed on discharge instructions, follow up and referral plans. medication usage, Demonstrated understanding of instructions. 17:51 Patient left the ED. em Signatures: Dispatcher [employer] EDMS Archana Crowder rg2 Naima Belcher RN RN ajAnuj Holt RN RN sg Rittger, Kevin, MD MD kdr Therrien, Shelly, ONLINE MARKETING ANALYST-C ONLINE MARKETING ANALYST-[place] Milly Vargas mr Miguel, Fabio, RENTAL SALES AGENT RENTAL SALES AGENT em Juana Briones, BEVERLY PAUL Milly Taylor ms Jose, Oliver, RENTAL SALES AGENT RENTAL SALES AGENT 3 Memo Rendon Maria 5 Princess Koch 3 Hedy Cooper RN RN bs1 Alexandria Ruvalcaba Shakira 3 Nacho Puri ks6 Savanna Lerner mp1 Reji Jones lc4 Corrections: (The following items were deleted from the chart) 02/18 17:05 15:20 Neuro: Level of Consciousness is awake, alert, obeys commands, Oriented to sg person, place, time, situation, Speech is normal, Facial symmetry appears normal, sg 02/19 06:46 06:44 Safety Checks: Personal items have been removed. The door is open or patient has lc4 been placed in a hallway bed/chair. There are no family/friend visitors at this time Sitter present at this time. lc4 09:01 07:27 Reassessment: em em 13:31 13:00 Safety checks: Items removed: yes. Door open/sign placed on door: yes. dh3 Family/friend present: yes. Sitter present: Yes. dh3 15:35 11:30 BP 105 / 66; Pulse 71bpm; Resp 16bpm; Pulse Ox 100%; Temp 96.1F; mp1 mp1 15:36 11:30 BP 111 / 64; Pulse 80bpm; Resp 16bpm; Pulse Ox 99%; Temp 98.3F; mp1 mp1 17:29 17:28 Safety checks: Items removed: yes. Door open/sign placed on door: yes. mp1 Family/friend present: yes. Sitter present: Yes. mp1
--- NOTE | 2018-02-20 10:33 | EKG ---
Test Date: 2018-02-18 Test Time: 15:12:11 System Administration Manager: CASSIE MEASUREMENT RESULTS: Intervals: Rate: 70 CT: 150 QRSD: 88 QT: 368 QTc: 397 [place]: P: 54 CT: 150 QRS: 59 T: 55 INTERPRETIVE STATEMENTS: Normal sinus rhythm Normal ECG No previous ECG available for comparison Electronically Signed On 02-20-18 10:27:51 CDT by Dion Romano
== END 2018-02-19 17:51 | disposition home or self-care (01) ==
LOC: ER 13:58
DX: F20.9 Schizophrenia, unspecified (principal); G40.802 Other epilepsy, not intractable, without status epilepticus; F17.210 Nicotine dependence, cigarettes, uncomplicated
CPT/HCPCS: 36415; 74176; 76377; 80048; 80076; 80307; 80320; 80329; 81003; 81025; 85025; 85610; 85730; 93005; 99285